=== PATIENT | female | born 1965 | race Caucasian/White ===

== ENCOUNTER 2023-03-01 11:46 | Emergency (ER) | payer OTHER ==
[~2023-03-01] VITALS: Ht 157.5 cm; Wt 66.2 kg
[2023-03-01 12:05] VITALS: BP 112/75
--- NOTE | 2023-03-01 12:05 | NUR ---
BIBS FOR S/P TRIP AND FALL ON TUESDAY @ [facility]. C/O RIGHT ARM PAIN. STATES LANDED ON KNEES BUT USED HER RIGHT ARM TO GET UP. CSMPT INTACT. NO DEFORMITY. AAO X4. RESP EVEN AND NONLABORED. VSS. AMBULATORY
[2023-03-01] MEDS ORDERED: IBUPROFEN 600 MG TAB PO ONE (14:15)
[2023-03-01] MEDS ORDERED: IBUP-2213 PO (15:07)
[2023-03-01 15:48] VITALS: BP 118/74
== END 2023-03-01 15:48 | disposition home or self-care (01) ==
LOC: MED 11:46
DX: S63.591A Other specified sprain of right wrist, initial encounter (principal); S53.491A Other sprain of right elbow, initial encounter; S66.811A Strain of other specified muscles, fascia and tendons at wrist and hand level, right hand, initial encounter; W01.0XXA Fall on same level from slipping, tripping and stumbling without subsequent striking against object, initial encounter; Y93.E5 Activity, floor mopping and cleaning; Y92.89 Other specified places as the place of occurrence of the external cause; Y99.8 Other external cause status
CPT/HCPCS: 73080; 73090; 73110; 73130; 99284